=== PATIENT | male | born 1980 | race Caucasian/White ===

== ENCOUNTER 2016-09-19 08:33 | Emergency (ER) | payer OTHER ==
[2016-09-19 09:06] LABS: BILIRUBIN NEGATIVE (NEGATIVE); BLOOD 3+ Ery/uL (NEGATIVE); CLARITY CLEAR (CLEAR); COLOR YELLOW (YELLOW); GLUCOSE (U) NORMAL (NORMAL); KETONE (U) NEGATIVE (NEGATIVE); LEUKOCYTES NEGATIVE Leu/uL (NEGATIVE); NITRITE NEGATIVE (NEGATIVE); PROTEIN NEGATIVE (NEGATIVE); pH 6.5 (5.0-9.0)
[2016-09-19 09:20] LABS: BACTERIA 1+; URINARY RBC 20-50; URINARY WBC RARE
== END 2016-09-19 10:51 | disposition home or self-care (01) ==
LOC: FER 08:33
PROVIDERS: Emergency Medicine
DX: N20.0 Calculus of kidney (principal); Z87.442 Personal history of urinary calculi
CPT/HCPCS: 81001; J1885

== ENCOUNTER 2021-07-02 17:40 | Emergency (ER) | payer OTHER ==
[2021-07-02 19:35] LABS: INFLUENZA A NAA NEGATIVE (NEGATIVE)
[2021-07-02 20:02] LABS: CORONAVIRUS 2019 SARS-COV-2 POSITIVE (NEGATIVE)
== END 2021-07-02 19:49 | disposition left against medical advice (07) ==
LOC: FER 17:40
PROVIDERS: Emergency Medicine
DX: U07.1 COVID-19 (principal); Z53.8 Procedure and treatment not carried out for other reasons
CPT/HCPCS: 71045; 99281; U0002

== ENCOUNTER 2021-12-15 11:07 | Emergency (ER) | payer OTHER ==
[~2021-12-15 11:07] MED LIST: ATARAX25 MG PO; DESYREL50 MG PO
[2021-12-15] MEDS ORDERED: BACLOFEN 10MG T10 MG PO (13:46)
[2021-12-15] MEDS ORDERED: NAPROXEN500 MG PO (13:46)
[2021-12-16] MEDS ORDERED: PROTONIX 40MG T40 MG PO (11:08)
== END 2021-12-15 14:09 | disposition home or self-care (01) ==
LOC: FER 11:07
DX: M54.50 Low back pain, unspecified (principal); L30.9 Dermatitis, unspecified; I71.2 Thoracic aortic aneurysm, without rupture; W14.XXXA Fall from tree, initial encounter; Y92.009 Unspecified place in unspecified non-institutional (private) residence as the place of occurrence of the external cause
CPT/HCPCS: 72128; 72131; 96372; J1100; J1885

== ENCOUNTER 2021-12-16 07:20 | Emergency (ER) | payer OTHER ==
[~2021-12-16 07:20] MED LIST changes: +BACLOFEN 10MG T10 MG PO; +NAPROXEN500 MG PO
[2021-12-16 08:30] LABS: BASOPHIL 0.2 % (0-2); EOSINOPHIL 0.1 % (0-5); HCT 50.6 % (42.0-52.0); HGB 17.1 g/dl (13.2-18.0); MCH 31.5 pg (25.0-31.0); MCHC 33.8 g/dL (32.0-36.0); MCV 93.4 fL (78.0-100.0); MONOCYTE 7.1 % (0-12); MPV 9.5 fL (6.0-9.5); NEUTROPHIL 83.2 % (41-80); NRBC 0; PLT 295 K/uL (150-400); RBC 5.42 M/uL (4.70-6.00); RDW 13.6 % (11.5-14.0)
[2021-12-16 09:32] LABS: ALBUMIN 4.8 g/dL (3.4-5.0); GLOBULIN (CALCULATION) 3.6 g/dL; POTASSIUM 3.9 mmol/L (3.5-5.1); TOTAL PROTEIN 8.4 g/dL (6.4-8.2)
[2021-12-16 09:34] LABS: CREATININE 0.94 mg/dL (0.67-1.17)
[2021-12-16] MEDS ORDERED: PROTONIX 40MG T40 MG PO (11:08)
== END 2021-12-16 12:45 | disposition home or self-care (01) ==
LOC: FER 07:20
PROVIDERS: Emergency Medicine
DX: K27.9 Peptic ulcer, site unspecified, unspecified as acute or chronic, without hemorrhage or perforation (principal); I71.2 Thoracic aortic aneurysm, without rupture
CPT/HCPCS: 36415; 71275; 72193; 80053; 83690; 85025; 93005; J2060; J7030